=== PATIENT | female | born 1970 | race Two or more races ===

== ENCOUNTER 2017-01-04 16:42 | Emergency (ER) | payer OTHER ==
[~2017-01-04] VITALS: Ht 170.2 cm; Wt 56.7 kg
[2017-01-04 16:53] VITALS: BP 118/91
[2017-01-04] MEDS ORDERED: IBUPROFEN 600 MG TAB PO ONE (20:15)
== END 2017-01-04 20:34 | disposition home or self-care (01) ==
LOC: ER 17:44
DX: S90.32XA Contusion of left foot, initial encounter (principal); X58.XXXA Exposure to other specified factors, initial encounter; Y93.89 Activity, other specified; Y92.89 Other specified places as the place of occurrence of the external cause; Y99.8 Other external cause status
CPT/HCPCS: 73630; 99284; L3260